=== PATIENT | male | born 1945 | race Caucasian/White ===

== ENCOUNTER → 2018-06-18 | Outpatient (CLI) | payer MEDICARE ==
[~2018-06-18] MED LIST: AMLO5TAB7 PO; APIX2.5T PO; ASPI-496 PO; ATOR10TA PO; CHOL500045 PO; FINA5TAB4 PO; FISH1CAP PO; FLUT1DIS3 INH; GABA100C PO; LISI1TAB7 PO; MONT10TA9 PO; TAMS-11 PO; TURM1POW PO
[2018-06-18 13:06] LABS: BASOPHILS # (AUTO) 0.05 x10^3/uL (0-0.1); BASOPHILS % (AUTO) 1 % (0-1); EOSINOPHILS # (AUTO) 0.17 x10^3/uL (0-0.4); EOSINOPHILS % (AUTO) 3 % (1-7); LYMPHOCYTES # (AUTO) 1.45 x10^3/uL (1-3.4); LYMPHOCYTES % (AUTO) 23 % (22-44); MD NO; MEAN CORPUSCULAR VOLUME 91.2 fL (81-97); MONOCYTES # (AUTO) 0.49 x10^3/uL (0.2-0.8); MONOCYTES % (AUTO) 8 % (2-9); NEUTROPHILS # (AUTO) 4.25 x10^3/uL (1.8-6.8); NEUTROPHILS % (AUTO) 66 % (42-75); PLATELET COUNT 183 x10^3/uL (130-400); RED BLOOD COUNT 4.57 x10^6/uL (4.38-5.82); RED CELL DISTRIBUTION WIDTH 13.1 % (9.4-14.8)
[2018-06-18 13:15] LABS: INTERNATIONAL NORMALIZED RATIO 1.02 (0.93-1.1); PROTHROMBIN TIME 10.5 Seconds (9.6-11.5)
[2018-06-18 13:16] LABS: CHLORIDE 109 mmol/L (98-107)
[2018-06-18 13:17] LABS: ALBUMIN 3.6 g/dL (3.4-5.0); ANION GAP 10 mmol/L (5-15); CALCIUM 8.9 mg/dL (8.5-10.1)
[2018-06-18 13:20] LABS: ALANINE AMINOTRANSFERASE 21 U/L (12-78); ALKALINE PHOSPHATASE 67 U/L (45-117); BILIRUBIN,TOTAL 0.7 mg/dL (0.2-1.0); CREATININE 3.28 mg/dL (0.7-1.3); TOTAL PROTEIN 7.3 g/dL (6.4-8.2)
[2018-06-18 13:23] LABS: HEMOGLOBIN A1C 5.5 % (4.2-6.3)
[2018-06-18 13:32] LABS: MICROSCOPIC NOT IND
[2018-06-18 13:34] LABS: CULTURE INDICATED? NO
== END | disposition home or self-care (01) ==
LOC: STAR 11:55
PROVIDERS: ATTEND Orthopaedic Surgery
DX: Z01.818 Encounter for other preprocedural examination (principal); M17.11 Unilateral primary osteoarthritis, right knee; I25.2 Old myocardial infarction
CPT/HCPCS: 36415; 80053; 81003; 83036; 85025; 85610; 85730; 87081; 87806; 93005; G0475

== ENCOUNTER 2018-07-01 05:41 | Observation (INO) | payer MEDICARE ==
[~2018-07-01] VITALS: Ht 177.8 cm; Wt 96.0 kg
[2018-07-01] MEDS ORDERED: LACTATED RINGERS 1,000 ML IV SCH (06:12)
[2018-07-01] MEDS ORDERED: ACETAMINOPHEN 500 MG TABLET PO ONE (06:30)
[2018-07-01] MEDS ORDERED: GABAPENTIN 300 MG CAPSULE PO ONE (06:30)
[2018-07-01] MEDS ORDERED: FLU VACCINE PER PHARMACY IM ONE (06:30)
[2018-07-01] MEDS ORDERED: MIDAZOLAM 1 MG/ML, 2ML ONE (06:34)
[2018-07-01] MEDS ORDERED: FENTANYL PF 250 MCG/5ML ONE (06:35)
[2018-07-01] MEDS ORDERED: TRANEXAMIC ACID 100 MG/ML, 10ML ONE ×4 (06:46)
[2018-07-01] MEDS ORDERED: ROPIvacaine/PF 0.2%, 20 ML ONE (06:46)
[2018-07-01] MEDS ORDERED: EPINEPHRINE 1 MG/ML, 1ML ONE (06:46)
[2018-07-01] MEDS ORDERED: KETOROLAC 60 MG/2 ML ONE (06:46)
[2018-07-01] MEDS ORDERED: SODIUM CHLORIDE 0.9% 1,000 ML IV SCH (06:47)
[2018-07-01] MEDS ORDERED: HYDR-3653 PO (06:50)
[2018-07-01] MEDS ORDERED: D5%-0.45NACL+KCL 20MEQ 1,000 ML IV SCH (07:14)
[2018-07-01] MEDS ORDERED: PROPOFOL 10 MG/ML, 20ML ONE (07:23)
[2018-07-01] MEDS ORDERED: GLYCOPYRROLATE 0.2MG/1ML, 5ML ONE (07:23)
[2018-07-01] MEDS ORDERED: CEFAZOLIN 1,000 MG ONE (07:23)
[2018-07-01] MEDS ORDERED: DEXAMETHASONE 4 MG/ML, 1ML ONE (07:23)
[2018-07-01] MEDS ORDERED: NEOSTIGMINE 1 MG/ML, 10ML ONE (07:23)
[2018-07-01] MEDS ORDERED: ONDANSETRON 2MG/ML, 2ML ONE (07:23)
[2018-07-01] MEDS ORDERED: ROCURONIUM 10 MG/ML,10ML ONE (07:23)
[2018-07-01] MEDS ORDERED: SUCCINYLCHOLINE 20 MG/ML, 10ML ONE (07:23)
[2018-07-01] MEDS ORDERED: ONDANSETRON 4 MG TABLET PO PRN (07:30)
[2018-07-01] MEDS ORDERED: PROMETHAZINE 12.5 MG SUPP PR PRN ×2 (07:30→08:30)
[2018-07-01] MEDS ORDERED: ONDANSETRON 2MG/ML, 2ML IV PRN ×2 (07:30→08:30)
[2018-07-01] MEDS ORDERED: HYDROmorphone 2 MG/ML, 1ML IV PRN (07:30)
[2018-07-01] MEDS ORDERED: SENNA/DOCUSATE TABLET PO PRN (07:30)
[2018-07-01] MEDS ORDERED: CEFAZOLIN PMX 1GM/50ML 50 ML IVPB SCH ×2 (07:30→15:30)
[2018-07-01] MEDS ORDERED: MAGNESIUM HYDROXIDE 8%, 30ML UDC PO PRN (07:30)
[2018-07-01] MEDS ORDERED: DIPHENHYDRAMINE 25 MG CAPSULE PO PRN (07:30)
[2018-07-01] MEDS ORDERED: ALUMINUM/MAG/SIMETHICONE 30 ML UDC PO PRN (07:30)
[2018-07-01] MEDS ORDERED: OXYcodone IR 5MG TABLET PO PRN (07:30)
[2018-07-01] MEDS ORDERED: PROMETHAZINE 25 MG/ML, 1ML IM PRN (07:30)
[2018-07-01] MEDS ORDERED: LABETALOL 5MG/ML, 20ML IV PRN (08:30)
[2018-07-01] MEDS ORDERED: ONDANSETRON ODT 8 MG PO PRN (08:30)
[2018-07-01] MEDS ORDERED: OXYcodone 5 MG/5 ML ORAL.SOL UDC PO PRN (08:30)
[2018-07-01] MEDS ORDERED: hydrALAzine 20 MG/ML, 1ML IV PRN (08:30)
[2018-07-01] MEDS ORDERED: DOCUSATE 100 MG CAPSULE PO SCH (09:00)
[2018-07-01] MEDS ORDERED: TRANEXAMIC ACID 1,000 MG in SODIUM CHLORIDE 0.9% 100 ML IVPB ONE (09:00)
[2018-07-01] MEDS ORDERED: HYDROmorphone 2 MG/ML, 1ML ONE (09:11)
[2018-07-01] MEDS ORDERED: OXYcodone 5 MG/5 ML ORAL.SOL UDC ONE (09:11)
[2018-07-01] MEDS: HYDROmorphone 1 MG/ML, 1ML IV PRN ×4 (09:15→09:38)
[2018-07-01] MEDS ORDERED: FENTANYL PF 100 MCG/2ML ONE (09:39)
[2018-07-01] MEDS: FENTANYL PF 100 MCG/2ML IV PRN ×2 (09:49→10:02)
[2018-07-01 11:15] VITALS: BP 128/69
[2018-07-01 13:51] VITALS: BP 148/88
[2018-07-01] MEDS ORDERED: ONDA4TAB10 PO (16:34)
[2018-07-01] MEDS ORDERED: TRAM50TA2 PO (16:34)
[2018-07-01] MEDS ORDERED: DOCU-131 PO (16:34)
[2018-07-01] MEDS ORDERED: OXYC5CAP2 PO (16:34)
[2018-07-01 17:40] VITALS: BP 148/80
[2018-07-01] MEDS ORDERED: MONTELUKAST 10 MG TABLET PO SCH (21:00)
[2018-07-01] MEDS ORDERED: APIXABAN 2.5 MG TABLET PO SCH (21:00)
[2018-07-01] MEDS ORDERED: ATORVASTATIN 10 MG TABLET PO SCH (21:00)
[2018-07-02] MEDS ORDERED: DEXAMETHASONE 4 MG/ML, 1ML IVPush SCH (06:00)
[2018-07-02] MEDS ORDERED: ASPIRIN 81 MG TABLET EC PO SCH (08:00)
[2018-07-02] MEDS ORDERED: AMLODIPINE 5 MG TABLET PO SCH (09:00)
[2018-07-02] MEDS ORDERED: GABAPENTIN 100 MG CAPSULE PO SCH (09:00)
[2018-07-02] MEDS ORDERED: HYDROCHLOROTHIAZIDE 25 MG TABLET PO SCH (09:00)
[2018-07-02] MEDS ORDERED: LISINOPRIL 20 MG TABLET PO SCH (09:00)
[2018-07-02] MEDS ORDERED: TAMSULOSIN 0.4 MG CAP.ER.24H PO SCH (09:00)
[2018-07-02] MEDS ORDERED: FINASTERIDE 5 MG TABLET PO SCH (09:00)
== END 2018-07-01 18:03 | disposition home or self-care (01) ==
LOC: OUT 05:41 → ORIP 07:14 → 4NOR 10:28
PROVIDERS: ADMIT Orthopaedic Surgery; ATTEND Orthopaedic Surgery
DX: M17.11 Unilateral primary osteoarthritis, right knee (principal)
CPT/HCPCS: 27447; 73560; 96365; 96375; 97162; C1713; C1776; G0378; G8978; G8979; G8980; J0171; J0330; J0690; J1100; J1170; J2250; J2405; J2704; J2710; J2795; J3010; J3480; J3490; J7030; Q0162; 36415; 87806; J1885; G0475

== ENCOUNTER 2020-03-22 08:18 | Outpatient (CLI) | payer MEDICARE ==
[~2020-03-22 08:18] MED LIST changes: +AMLO-150 PO; -AMLO5TAB7 PO; +DOCU-131 PO; +HYDR-3653 PO; +LISI1TAB20 PO; -LISI1TAB7 PO; +MONT10TA11 PO; -MONT10TA9 PO; +ONDA4TAB10 PO; +OXYC5CAP2 PO; +TRAM50TA2 PO
[2020-03-22 09:30] LABS: ALBUMIN 3.7 g/dL (3.4-5.0); ANION GAP 4 mmol/L (5-15); CALCIUM 8.9 mg/dL (8.5-10.1); CHLORIDE 112 mmol/L (98-107)
[2020-03-22 09:33] LABS: ALANINE AMINOTRANSFERASE 23 U/L (12-78); ALKALINE PHOSPHATASE 73 U/L (45-117); BILIRUBIN,TOTAL 0.6 mg/dL (0.2-1.0); CREATININE 2.95 mg/dL (0.7-1.3); TOTAL PROTEIN 7.4 g/dL (6.4-8.2)
[2020-03-25] MEDS ORDERED: AZEL23SP NAS (09:23)
[2020-03-25] MEDS ORDERED: FISH1CAP PO (09:23)
[2020-03-25] MEDS ORDERED: FLUT1BLS9 INH (09:23)
[2020-03-25] MEDS ORDERED: ALBU8.5H8 INH (09:23)
== END 2020-03-22 23:59 | disposition home or self-care (01) ==
LOC: STAR 08:18
PROVIDERS: ATTEND Orthopaedic Surgery
DX: Z01.818 Encounter for other preprocedural examination (principal); Z11.59 Encounter for screening for other viral diseases; M25.511 Pain in right shoulder; R00.1 Bradycardia, unspecified; I25.2 Old myocardial infarction
CPT/HCPCS: 36415; 80053; 87635; 93005

== ENCOUNTER 2020-03-26 05:38 | Inpatient (IN) | payer MEDICARE ==
[~2020-03-26] VITALS: Ht 177.8 cm; Wt 100.0 kg
[~2020-03-26 05:38] MED LIST changes: +ALBU8.5H8 INH; +AZEL23SP NAS; +FLUT1BLS9 INH
[2020-03-26] MEDS ORDERED: LACTATED RINGERS 1,000 ML IV SCH (06:01)
[2020-03-26] MEDS ORDERED: BUPIVACAINE/PF-EPI 0.5% 1:200K ONE (06:10)
[2020-03-26] MEDS ORDERED: FENTANYL PF 250 MCG/5ML ONE (06:26)
[2020-03-26] MEDS ORDERED: MIDAZOLAM 1 MG/ML, 2ML ONE ×2 (06:26)
[2020-03-26] MEDS ORDERED: CHLORHEXIDINE 15 ML UDC MM ONE (06:30)
[2020-03-26] MEDS ORDERED: HALOPERIDOL 5 MG/ML IV PRN (07:00)
[2020-03-26] MEDS ORDERED: MEPERIDINE/PF 25MG/0.5ML IVPush PRN (07:00)
[2020-03-26] MEDS ORDERED: DIPHENHYDRAMINE 50 MG/ML, 1ML IVPush PRN (07:00)
[2020-03-26] MEDS ORDERED: hydrALAzine 20 MG/ML, 1ML IV PRN (07:00)
[2020-03-26] MEDS ORDERED: LABETALOL 5MG/ML, 20ML IV PRN (07:00)
[2020-03-26] MEDS ORDERED: OXYcodone 5 MG/5 ML ORAL.SOL UDC PO PRN (07:00)
[2020-03-26] MEDS ORDERED: FENTANYL PF 100 MCG/2ML IV PRN (07:00)
[2020-03-26] MEDS ORDERED: HYDROmorphone 1 MG/ML, 1ML INJ IVPush PRN (07:00)
[2020-03-26] MEDS ORDERED: PROMETHAZINE 25 MG/ML, 1ML IVPush PRN (07:00)
[2020-03-26] MEDS ORDERED: ONDANSETRON 2MG/ML, 2ML ONE (07:05)
[2020-03-26] MEDS ORDERED: EPHEDRINE 50 MG/ML, 1ML ONE (07:05)
[2020-03-26] MEDS ORDERED: PROPOFOL 10 MG/ML, 20ML ONE (07:05)
[2020-03-26] MEDS ORDERED: PHENYLEPHRINE 10 MG/ML ONE (07:05)
[2020-03-26] MEDS ORDERED: ROCURONIUM 10 MG/ML,10ML ONE (07:05)
[2020-03-26] MEDS ORDERED: SUCCINYLCHOLINE 20 MG/ML, 10ML ONE (07:05)
[2020-03-26] MEDS ORDERED: DEXAMETHASONE 4 MG/ML, 1ML ONE (07:05)
[2020-03-26] MEDS ORDERED: VANCOMYCIN 1,000 MG ONE (07:17)
[2020-03-26] MEDS ORDERED: CLINDAMYCIN 150 MG/ML, 6ML ONE (07:17)
[2020-03-26] MEDS ORDERED: TRANEXAMIC ACID 100 MG/ML, 10ML ONE (07:17)
[2020-03-26] MEDS ORDERED: ROPIvacaine/PF 0.2%, 20 ML ONE (08:19)
[2020-03-26] MEDS ORDERED: SUGAMMADEX 200 MG/2 ML IVPush ONE (08:20)
[2020-03-26 10:16] VITALS: BP 131/75
[2020-03-26] MEDS ORDERED: HYDROmorphone 2 MG/ML, 1ML IVPush PRN (12:00)
[2020-03-26] MEDS ORDERED: ONDANSETRON 2MG/ML, 2ML IV PRN (12:00)
[2020-03-26] MEDS: CEFAZOLIN PMX 2GM/50ML 50 ML IVPB SCH ×2 (12:27→21:04)
[2020-03-26 12:35] VITALS: BP 131/73
[2020-03-26 18:40] VITALS: BP 127/73
[2020-03-26] MEDS ORDERED: AMLODIPINE 5 MG TABLET PO SCH (21:00)
[2020-03-26] MEDS ORDERED: WIXELA INH SCH (21:00)
[2020-03-26] MEDS ORDERED: MONTELUKAST 10 MG TABLET PO SCH (21:00)
[2020-03-26] MEDS ORDERED: TAMSULOSIN 0.4 MG CAP.ER.24H PO SCH (21:00)
[2020-03-26] MEDS ORDERED: GABAPENTIN 100 MG CAPSULE PO SCH (21:00)
[2020-03-26] MEDS ORDERED: ATORVASTATIN 10 MG TABLET PO SCH (21:00)
[2020-03-26] MEDS ORDERED: SODIUM CHLORIDE FLUSH 10ML SYR IVF SCH (21:00)
[2020-03-26] MEDS: OXYcodone/APAP 5/325MG TABLET PO PRN (21:39)
[2020-03-27 00:01] VITALS: BP 107/67
[2020-03-27 04:18] VITALS: BP 111/65
[2020-03-27 06:50] VITALS: BP 138/75
[2020-03-27] MEDS: OXYcodone/APAP 5/325MG TABLET PO PRN (08:27)
[2020-03-27] MEDS ORDERED: OXYC5CAP2 PO (08:37)
[2020-03-27] MEDS ORDERED: ASPIRIN 81 MG TABLET CHEW PO SCH (09:00)
[2020-03-27] MEDS ORDERED: HYDROCHLOROTHIAZIDE 25 MG TABLET PO SCH (09:00)
[2020-03-27] MEDS ORDERED: LISINOPRIL 20 MG TABLET PO SCH (09:00)
[2020-03-27 09:18] VITALS: BP 136/70
[2020-03-29] MEDS ORDERED: APIXABAN 2.5 MG TABLET PO SCH (09:00)
== END 2020-03-27 09:50 | disposition home or self-care (01) | DRG 483 ==
LOC: ORIP 05:38 → 4NE 10:10
PROVIDERS: ADMIT Orthopaedic Surgery; ATTEND Orthopaedic Surgery
PROC: 3E0T3BZ Introduction of Anesthetic Agent into Peripheral Nerves and Plexi, Percutaneous Approach (ICD-10-PCS; 2020-03-26)
PROC: 0RRJ00Z Replacement of Right Shoulder Joint with Reverse Ball and Socket Synthetic Substitute, Open Approach (ICD-10-PCS; principal; 2020-03-26 07:00)
DX: M12.811 Other specific arthropathies, not elsewhere classified, right shoulder (principal); N18.4 Chronic kidney disease, stage 4 (severe); M25.511 Pain in right shoulder; E78.5 Hyperlipidemia, unspecified; I12.9 Hypertensive chronic kidney disease with stage 1 through stage 4 chronic kidney disease, or unspecified chronic kidney disease; J45.909 Unspecified asthma, uncomplicated; Z88.8 Allergy status to other drugs, medicaments and biological substances; Z20.828 Contact with and (suspected) exposure to other viral communicable diseases
CPT/HCPCS: 36415; 87635; C1713; C1776; G0378; J0690; J1100; J2250; J2405; J2704; J2795; J3010; J3370; J0330; J2370; J7120